=== PATIENT | male | born 1995 ===

== ENCOUNTER 2018-09-23 08:01 | Emergency (ER) | payer BC, OTHER ==
[2018-09-23 08:01] VITALS: BMI 17.7
[2018-09-23] MEDS: Albuterol-Ipratrop 3 mg / 0.5 (3 ml) UD IH SCH ×3 (08:23→09:17)
--- NOTE | 2018-09-23 08:27 | ED PDOC ---
Arrival/HPI - General Chief Complaint: Cough, Cold, Congestion Time Seen by Provider: 09/23/18 08:08 Historian: Patient - History of Present Illness Narrative History of Present Illness (Text): 09/23/18 08:12 A 23 year old male, whose past medical history includes asthma(triggered by weather change), presents to the emergency department complaining of asthma exacerbation for the past few days. Patient reports experiencing non-productive cough and shortness of breath. He mentions he takes albuterol but has had only slight relief of symptoms. Denies any use of steroids. Patient states this morning upon waking up, he was unable to breathe. Patient became concerned and decided to visit the ER for evaluation. Notes also experiencing back pain for a few days as well, however it worsened yesterday. Patient's secondary complaint is left wrist pain s/p injury 1 month ago from playing basketball. States at the time did not feel much pain until recently it has become slightly worse. Patient denies any fever, phlegm with cough, or any other complaints at this time. No PMD Past Medical History - Provider Review Nursing Documentation Reviewed: Yes - Cardiac Hx Cardiac Disorders: No - Pulmonary Hx Asthma: Yes - Neurological Hx Seizures: Yes (possible) - HEENT Hx HEENT Disorder: No - Renal Hx Renal Disorder: No - Endocrine/Metabolic Hx Endocrine Disorders: No - Hematological/Oncological Hx Blood Disorders: No - Integumentary Hx Dermatological Disorder: No - Musculoskeletal/Rheumatological Hx Musculoskeletal Disorders: No - Gastrointestinal Hx Gastrointestinal Disorders: No - Genitourinary/Gynecological Hx Genitourinary Disorders: No - Psychiatric Hx Psychophysiologic Disorder: No Hx Substance Use: Yes (marijuana) - Anesthesia Hx Anesthesia: No Family/Social History - Physician Review Nursing Documentation Reviewed: Yes Family/Social History: No Known Family HX Smoking Status: Current Some Days Smoker Hx Alcohol Use: Yes Frequency of alcohol use: Socially Hx Substance Use: Yes (marijuana) Substance used: cocaine Allergies/Home Meds Allergies/Adverse Reactions: Allergies No Known Allergies Allergy (Verified 09/23/18 08:07) Home Medications: Home Meds Medication Instructions Recorded Confirmed Albuterol Sulfate [Proventil Hfa] 2 puff IH Q6 PRN 04/01/16 09/23/18 Review of Systems - Physician Review All systems were reviewed & negative as marked: Yes - Review of Systems Constitutional: absent: Fevers Eyes: absent: Vision Changes ENT: absent: Hearing Changes Respiratory: SOB, Cough (non-productive). absent: Sputum Cardiovascular: absent: Chest Pain, Palpitations, Edema, Calf Pain, GRANADOS, Orthopnea, Syncope Gastrointestinal: absent: Abdominal Pain, Constipation, Diarrhea, Nausea, Vomiting Genitourinary Male: absent: Dysuria, Frequency Musculoskeletal: Back Pain, Other (left wrist pain s/p injury) Skin: absent: Rash Neurological: absent: Headache, Dizziness, Focal Weakness, Gait Changes, Speech Changes Psychiatric: absent: Anxiety Physical Exam Vital Signs Reviewed: Yes Vital Signs Temp Pulse Resp BP Pulse Ox 09/23/18 08:05 97.6 F 75 18 109/68 98 Temperature: Afebrile Blood Pressure: Normal Pulse: Regular Respiratory Rate: Normal Appearance: Positive for: Well-Appearing, Non-Toxic, Comfortable Pain Distress: None Mental Status: Positive for: Alert and Oriented X 3 - Systems Exam Head: Present: Atraumatic, Normocephalic Pupils: Present: PERRL Extroacular Muscles: Present: EOMI Conjunctiva: Present: Normal Mouth: Present: Moist Mucous Membranes Neck: Present: Normal Range of Motion Respiratory/Chest: Present: Wheezes (scant) Cardiovascular: Present: Regular Rate and Rhythm, Normal S1, S2. No: Murmurs Abdomen: No: Tenderness, Distention, Peritoneal Signs Back: Present: Normal Inspection Upper Extremity: Present: Normal Inspection, Normal ROM (left wrist), NORMAL PULSES, Tenderness (scant tenderness to left wrist), Neurovascularly Intact. No: Cyanosis, Edema, Temperature Abnormalties Lower Extremity: Present: Normal Inspection. No: Edema Neurological: Present: GCS=15, CN II-XII Intact, Speech Normal Skin: Present: Warm, Dry, Normal Color. No: Rashes Psychiatric: Present: Alert, Oriented x 3, Normal Insight, Normal Concentration Medical Decision Making ED Course and Treatment: 09/23/18 08:16 Impression: 23 year old male with non-productive cough and shortness of breath, back pain; left wrist pain. Physical exam shows scant wheezing; and left wrist: full ROM, scant tenderness; no other acute findings on physical examination. Plan: -- Chest X-ray -- Left Wrist X-Ray -- Duoneb -- SOLU-Medrol -- Reassess and disposition Progress Notes: 09/23/18 10:29 Xray shows minimally displaced fracture of the distal scaphoid. Patient made aware and given ortho follow-up. Cxray negative. No wheezing on reevaluation. Requesting work note for yesterday and today. Reports that he doesn't want steroids and has nebulizer at home. 09/23/2018 10:58 Chest X-ray IMPRESSION: No active disease. Dictator: Kwan Stevens MD 09/23/2018 11:00 Left Wrist X-Ray FINDINGS: BONES: Minimally displaced fracture of the distal scaphoid, likely an avulsion injury. No other fracture identified. JOINTS: Normal. No dislocation. SOFT TISSUES: Normal. OTHER FINDINGS: None. IMPRESSION: Minimally displaced fracture of the distal scaphoid. Dictator: Kwan Stevens MD - RAD Interpretation Radiology Orders: 09/23/18 08:15 CHEST TWO VIEWS (PA/LAT) [RAD] Stat WRIST, LEFT 3 VIEWS [RAD] Stat - Medication Orders Current Medication Orders: Albuterol/Ipratropium (Duoneb 3 Mg/0.5 Mg (3 Ml) Ud) 3 ml IH Q15M LIZETTE Stop: 09/23/18 08:46 Discontinued Medications Methylprednisolone (Solu-Medrol) 125 mg IVP STAT STA Stop: 09/23/18 08:16 - Scribe Statement The provider has reviewed the documentation as recorded by the Sandy Villavicencio Provider Scribe Attestation: All medical record entries made by the Scribe were at my direction and personally dictated by me. I have reviewed the chart and agree that the record accurately reflects my personal performance of the history, physical exam, medical decision making, and the department course for this patient. I have also personally directed, reviewed, and agree with the discharge instructions and disposition. Disposition/Present on Arrival - Present on Arrival Any Indicators Present on Arrival: No History of DVT/PE: No History of Uncontrolled Diabetes: No Urinary Catheter: No History of Decub. Ulcer: No History Surgical Site Infection Following: None - Disposition Have Diagnosis and Disposition been Completed?: Yes Diagnosis: Asthma, Scaphoid fracture Disposition: HOME/ ROUTINE Disposition Time: 10:32 Patient Plan: Discharge Condition: GOOD Discharge Instructions (ExitCare): Asthma in Adults, Wrist Fracture (DC), Common Wrist Injuries Additional Instructions: Follow-up with PMD within 2 days. Return to ED if condition worsens. Follow-up with ortho within [address]int in place. Referrals: Ethan Marina, [Staff Provider] - Follow up with primary Forms: [facility] ([place]), WORK NOTE
--- NOTE | 2018-09-23 11:01 | RAD ---
Date of service: 09/23/2018 HISTORY: cough, asthma COMPARISON: No prior. TECHNIQUE: Chest PA and lateral FINDINGS: LUNGS: No active pulmonary disease. PLEURA: No significant pleural effusion identified. No pneumothorax apparent. CARDIOVASCULAR: No aortic atherosclerotic calcification present OSSEOUS STRUCTURES: No significant abnormalities. VISUALIZED UPPER ABDOMEN: Normal. OTHER FINDINGS: None. IMPRESSION: No active disease.
--- NOTE | 2018-09-23 11:04 | RAD ---
Date of service: 09/23/2018 PROCEDURE: Left Wrist Radiographs. HISTORY: L wrist pain after trauma COMPARISON: None. FINDINGS: BONES: Minimally displaced fracture of the distal scaphoid, likely an avulsion injury. No other fracture identified. JOINTS: Normal. No dislocation. SOFT TISSUES: Normal. OTHER FINDINGS: None. IMPRESSION: Minimally displaced fracture of the distal scaphoid.
[2018-09-23 11:14] VITALS: BP 107/74; PULSE 85; RESP 18; TEMP 98.2; O2SAT 98
== END 2018-09-23 11:07 | disposition home or self-care (01) ==
LOC: ED 08:01
DX: J45.909 Unspecified asthma, uncomplicated (principal); F17.210 Nicotine dependence, cigarettes, uncomplicated; S62.012A Displaced fracture of distal pole of navicular [scaphoid] bone of left wrist, initial encounter for closed fracture; X58.XXXA Exposure to other specified factors, initial encounter; Y93.67 Activity, basketball; Y92.310 Basketball court as the place of occurrence of the external cause
CPT/HCPCS: 71046; 73110; 96374; 99283; J2930